=== PATIENT | female | born 2000 | race Two or more races ===

== ENCOUNTER 2021-02-15 17:41 | Emergency (ER) | payer OTHER ==
[~2021-02-15] VITALS: Ht 162.6 cm; Wt 125.2 kg
== END 2021-02-15 21:43 | disposition home or self-care (01) ==
LOC: EMR PED 17:41
DX: M25.552 Pain in left hip (principal)

== ENCOUNTER 2021-04-27 23:13 | Emergency (ER) | payer OTHER ==
[~2021-04-27] VITALS: Ht 162.6 cm; Wt 127.5 kg
[2021-04-28] MEDS ORDERED: KETO10TA2 PO (02:51)
== END 2021-04-28 02:59 ==
LOC: ER 23:13 → EMR PED 23:42
DX: R00.2 Palpitations (principal); F41.8 Other specified anxiety disorders

== ENCOUNTER 2021-05-13 10:32 | Emergency (ER) | payer OTHER ==
[~2021-05-13] VITALS: Ht 162.6 cm; Wt 122.9 kg
[~2021-05-13 10:32] MED LIST: KETO10TA2 PO
== END 2021-05-13 13:48 | disposition home or self-care (01) ==
LOC: EMR PED 10:32
DX: B34.9 Viral infection, unspecified (principal); H66.92 Otitis media, unspecified, left ear; Z03.818 Encounter for observation for suspected exposure to other biological agents ruled out

== ENCOUNTER 2021-05-29 16:18 | Emergency (ER) | payer OTHER ==
[~2021-05-29] VITALS: Ht 162.6 cm; Wt 126.1 kg
== END 2021-05-29 22:43 | disposition home or self-care (01) ==
LOC: ER 16:18 → EMR PED 16:59
DX: R10.9 Unspecified abdominal pain (principal); R55 Syncope and collapse; I88.0 Nonspecific mesenteric lymphadenitis; Z03.818 Encounter for observation for suspected exposure to other biological agents ruled out

== ENCOUNTER 2022-03-06 21:56 | Emergency (ER) | payer OTHER ==
[~2022-03-06] VITALS: Ht 162.6 cm; Wt 97.5 kg
== END 2022-03-07 00:28 | disposition home or self-care (01) ==
LOC: ER 21:56
DX: M94.0 Chondrocostal junction syndrome [Tietze] (principal); F41.0 Panic disorder [episodic paroxysmal anxiety]

== ENCOUNTER 2023-03-07 16:28 | Emergency (ER) | payer OTHER ==
[~2023-03-07] VITALS: Ht 162.6 cm; Wt 90.7 kg
== END 2023-03-07 23:27 | disposition left against medical advice (07) ==
LOC: ER 16:28
DX: S90.01XA Contusion of right ankle, initial encounter (principal); S90.31XA Contusion of right foot, initial encounter; X58.XXXA Exposure to other specified factors, initial encounter; Y93.9 Activity, unspecified; Y92.9 Unspecified place or not applicable; Y99.9 Unspecified external cause status